=== PATIENT | male | born 1960 | race Caucasian/White ===

== ENCOUNTER 2017-03-16 19:41 | Emergency (ER) | payer OTHER ==
[2017-03-16 20:01] VITALS: RESP 18; TEMP 98.5; O2SAT 98
[2017-03-16] MEDS ORDERED: Sodium Chloride 0.9% 1,000 ML IV STA (20:35)
--- NOTE | 2017-03-16 20:38 | ED PDOC ---
Lower Extremity Pain/Injury Time Seen by Provider: 03/16/17 20:07 Chief Complaint (Nursing): Weakness/Neurological Deficit Chief Complaint (Provider): bilateral leg pain History Per: Patient History/Exam Limitations: no limitations Onset/Duration Of Symptoms: Days (3) Current Symptoms Are (Timing): Still Present Additional History Per: Patient Additional Complaint(s): 56 y/o male presents for eval of bilateral lower extremity pain x 3 days. Patient notes "tightness" in the muscles, worse when walking. Denies fever, headache, dizziness, chest pain, shortness of breath, palpitations, abdominal pain, back pain, bowel/bladder incontinence, calf swelling, recent travel. Patient taking diclofenac and duexis with some relief. Past Medical History Reviewed: Historical Data, Nursing Documentation, Vital Signs Vital Signs: Last Vital Signs Temp 98.5 F 03/16/17 19:56 Pulse 88 03/16/17 19:56 Resp 18 03/16/17 19:56 BP 149/90 03/16/17 19:56 Pulse Ox 98 03/16/17 19:56 - Medical History PMH: HTN, Hypothyroidism - Surgical History Surgical History: No Surg Hx - Family History Family History: States: No Known Family Hx - Living Arrangements Living Arrangements: With Family - Home Medications Home Medications: Ambulatory Orders Medication Instructions Recorded Cyclobenzaprine [Cyclobenzaprine 10 mg PO BID PRN #14 tab 03/16/17 HCl] - Allergies Allergies/Adverse Reactions: Allergies Allergy/AdvReac Type Severity Reaction Status Date / Time shrimp Allergy RASH Verified 03/16/17 19:56 Review of Systems ROS Statement: Except As Marked, All Systems Reviewed And Found Negative Musculoskeletal: Positive for: Leg Pain Physical Exam - Reviewed Nursing Documentation Reviewed: Yes Vital Signs Reviewed: Yes - Physical Exam Appears: Positive for: Well, Non-toxic, No Acute Distress Head Exam: Positive for: ATRAUMATIC, NORMAL INSPECTION, NORMOCEPHALIC Skin: Positive for: Normal Color Eye Exam: Positive for: Normal appearance ENT: Positive for: Normal ENT Inspection Cardiovascular/Chest: Positive for: Regular Rate, Rhythm Respiratory: Positive for: Normal Breath Sounds Gastrointestinal/Abdominal: Positive for: Normal Exam Back: Positive for: Normal Inspection Extremity: Positive for: Normal ROM Neurologic/Psych: Positive for: Alert, Oriented - Laboratory Results Result Diagrams: 03/16/17 20:26 03/16/17 20:45 - ECG O2 Sat by Pulse Oximetry: 98 - Progress ED Course And Treament: labs, u/s, IV fluids, IV toradol EXAM: US Duplex Bilateral Lower Extremity Veins CLINICAL HISTORY: 56 years old, male; Pain; Leg, lower; Bilateral; Additional info: Bilateral leg pain TECHNIQUE: Real-time ultrasound scan of the veins of the bilateral lower extremities with color Doppler flow, spectral waveform analysis and compression. COMPARISON: No relevant prior studies available. FINDINGS: Right deep veins: Unremarkable. No DVT in the right common femoral, femoral, proximal deep femoral or popliteal veins. The veins demonstrate normal color flow, are normally compressible, with normal phasic flow and/or augmentation response. Right superficial veins: Unremarkable. No thrombus in the visualized right great saphenous vein. Left deep veins: Unremarkable. No DVT in the left common femoral, femoral, proximal deep femoral or popliteal veins. The veins demonstrate normal color flow, are normally compressible, with normal phasic flow and/or augmentation response. Left superficial veins: Unremarkable. No thrombus in the visualized left great saphenous vein. Soft tissues: No acute findings. No popliteal cyst. Other findings: IMPRESSION: No acute findings. On re-eval, patient states pain improved. patient educated on findings, discharged with rx flexeril. Advised follow up PMD 2 days for repeat CPK. Encouraged fluids. Return to ED for worsening/concerning symptoms. Disposition - Clinical Impression Clinical Impression: Myalgia, Elevated CPK - Patient ED Disposition Is Patient to be Admitted: No Counseled Patient/Family Regarding: Studies Performed, Diagnosis, Need For Followup, Rx Given - Disposition Disposition: Routine/Home Disposition Time: 22:41 Condition: IMPROVED Additional Instructions: Follow up with primary doctor in 2 days. Take medication as directed, as needed. Drink plenty of fluids. Return to ED for worsening/concerning symptoms. Prescriptions: Cyclobenzaprine [Cyclobenzaprine HCl] 10 mg PO BID PRN #14 tab PRN Reason: Muscle Spasm Instructions: Musculoskeletal Pain (ED), Rhabdomyolysis (ED) Forms: [facility] ED School/Work Excuse Print Language: CHINESE
[2017-03-16 21:01] LABS: BASO % 0.5 % (0.0-2.0); EOS # 0.1 K/uL (0.0-0.7); EOS % 2.1 % (0.0-4.0); HEMATOCRIT 35.1 % (35.0-51.0); LYMPH # 1.3 K/uL (1.0-4.3); LYMPH % 18.4 % (20.0-40.0); MEAN CELL VOLUME 91.5 fl (80.0-94.0); MEAN CORPUSCULAR HEMOGLOBIN 30.2 pg (27.0-31.0); MEAN PLATELET VOLUME 7.6 fl (7.2-11.7); MONO # 0.7 K/uL (0.0-0.8); MONO % 9.4 % (0.0-10.0); NEUT % 69.6 % (50.0-75.0); RED CELL DISTRIBUTION WIDTH 14.2 % (11.5-14.5); WHITE BLOOD COUNT 7.2 K/uL (4.8-10.8)
[2017-03-16 21:09] LABS: ALB/GLOB RATIO 1.6 (1.0-2.1); ALKALINE PHOSPHATASE 76 U/L (38-126); ALT/SGPT 45 U/L (21-72); AST/SGOT 50 U/L (17-59); BILIRUBIN,TOTAL 0.7 mg/dl (0.2-1.3); BLOOD UREA NITROGEN 15 mg/dl (9-20); CARBON DIOXIDE 22 mmol/L (22-30); CHLORIDE 106 mmol/L (98-107); GFR AFRICAN-AMERICAN > 60; GLUCOSE,RANDOM 93 mg/dL (75-110); POTASSIUM 4.1 MMOL/L (3.6-5.0); SODIUM 142 mmol/l (132-148); TOTAL PROTEIN 7.1 G/DL (6.3-8.2)
[2017-03-16 21:39] LABS: THYROID STIMULATING HORMONE 1.05 mIU/ML (0.46-4.68)
--- NOTE | 2017-03-16 22:26 | US ---
EXAM: US Duplex Bilateral Lower Extremity Veins CLINICAL HISTORY: 56 years old, male; Pain; Leg, lower; Bilateral; Additional info: Bilateral leg pain TECHNIQUE: Real-time ultrasound scan of the veins of the bilateral lower extremities with color Doppler flow, spectral waveform analysis and compression. COMPARISON: No relevant prior studies available. FINDINGS: Right deep veins: Unremarkable. No DVT in the right common femoral, femoral, proximal deep femoral or popliteal veins. The veins demonstrate normal color flow, are normally compressible, with normal phasic flow and/or augmentation response. Right superficial veins: Unremarkable. No thrombus in the visualized right great saphenous vein. Left deep veins: Unremarkable. No DVT in the left common femoral, femoral, proximal deep femoral or popliteal veins. The veins demonstrate normal color flow, are normally compressible, with normal phasic flow and/or augmentation response. Left superficial veins: Unremarkable. No thrombus in the visualized left great saphenous vein. Soft tissues: No acute findings. No popliteal cyst. Other findings: IMPRESSION: No acute findings.
[2017-03-16 22:55] VITALS: BP 138/42; PULSE 64
== END 2017-03-16 22:55 | disposition home or self-care (01) ==
LOC: H.ER 19:41
DX: M79.604 Pain in right leg (principal); R74.8 Abnormal levels of other serum enzymes; E03.9 Hypothyroidism, unspecified; I10 Essential (primary) hypertension
CPT/HCPCS: 80053; 82550; 84443; 85025; 93970; 96360; 99284; J1885; J7040